=== PATIENT | female | born 1945 | race Caucasian/White ===

== ENCOUNTER → 2018-05-11 | Outpatient (CLI) | payer MEDICARE ==
--- NOTE | 2018-05-11 15:16 | CT ---
EXAMINATION TYPE: CT ChestAbdPelvis w con DATE OF EXAM: 05/11/2018 COMPARISON: Outside CT abdomen 04/18/2018. Bone scan 05/03/2018. HISTORY: 73-year-old female preoperative assessment, history of Breast CA TECHNIQUE: Contiguous axial scanning of the chest, abdomen, and pelvis performed with IV Contrast, pa tient injected with 100 mL of Isovue 300. Delayed images through the kidneys were obtained. Coronal/s agittal reconstructions performed. CT DLP: 1471 mGycm Automated exposure control for dose reduction was used. FINDINGS: Chest: Heart is normal size without pericardial effusion. Aorta is normal caliber with conventional branching anatomy. No thoracic lymphadenopathy by CT size criteria. Fatty breast tissue is present. 1.2 cm left upper lobe pulmonary nodule axial image 18. There is some tree-in-bud nodularity in the a nterior right midlung, axial image 25. Additional small nodules measuring up to 4 mm on the right david e could also be on a postinflammatory basis. No sha consolidation or pleural effusion. ABDOMEN: [id number] size hiatal hernia. No focal liver lesion. Gallbladder, adrenal glands, kidneys, spleen, and pancreas show no gross abnormality. Variant direct takeoff of the splenic artery from the aorta. The graft no dilated small bowel, free f luid, or free air. No mesenteric or retroperitoneal lymphadenopathy. Oral contrast progressed to the descending colon. No pericolonic inflammatory change. Pelvis: Bladder is nondistended. Uterus surgically absent. No abnormal fluid collection in the pelvis or pelv ic lymphadenopathy. Bones: -There is a destructive lesion involving the intertrochanteric region of the left femur with signific ant posterior cortical thinning. -Destructive soft tissue lesion within the right sacrum and posterior right iliac bone. -Permeative lucencies throughout the left scapula and possible incomplete pathologic fracture at the base of the coracoid process. -Suspect a subacute nondisplaced fracture of the right lateral seventh rib, axial image 38. -There may be some marrow replacement of the left clavicular head on axial image 10. -Suspect a lytic lesion within the posterior L2 vertebral body measuring 1 cm, axial image 60. -Destructive soft tissue lesion within the left T4 posterior elements extending across the pedicle an d into the left lateral epidural space, axial image 14. IMPRESSION: 1. OSSEOUS METASTATIC DISEASE WITH PERMEATIVE DESTRUCTION THROUGHOUT THE LEFT SCAPULA. SUSPECT INCOMP LETE PATHOLOGIC FRACTURE AT THE BASE OF THE CORACOID PROCESS. 2. ADDITIONAL LYTIC DISEASE INVOLVING THE LEFT T4 POSTERIOR ELEMENTS WITH EXTENSION ACROSS THE LEFT P EDICLE AND EXTRAOSSEOUS SOFT TISSUE EXTENDING INTO THE LEFT LATERAL EPIDURAL SPACE. 3. MARROW REPLACEMENT IN THE LEFT INTERTROCHANTERIC REGION WITH THINNING OF THE POSTERIOR CORTEX. THI S PLACES THE PATIENT AT RISK FOR PATHOLOGIC FRACTURE. PATIENT SHOULD BE MADE NONWEIGHTBEARING. 4. LYTIC DESTRUCTION OF THE RIGHT SACRUM AND POSTERIOR RIGHT ILIAC BONE. 5. SUSPECT ADDITIONAL OSSEOUS METASTATIC DISEASE IN THE POSTERIOR L2 VERTEBRAL BODY AND LEFT CLAVICUL AR HEAD. 6. A 1.2 CM LEFT UPPER LOBE PULMONARY NODULE SUSPICIOUS FOR METASTATIC DISEASE. 7. TREE-IN-BUD OPACITIES AND SOME SMALLER 4 MM NODULES ON THE RIGHT SUGGEST AN INFECTIOUS/INFLAMMATOR Y ETIOLOGY. REASSESS AT FOLLOW-UP.
== END | disposition home or self-care (01) ==
LOC: RADCTMAIN 12:34
PROVIDERS: ATTEND Internal Medicine Hematology & Oncology
DX: Z01.818 Encounter for other preprocedural examination (principal); R91.8 Other nonspecific abnormal finding of lung field; C79.51 Secondary malignant neoplasm of bone; C50.411 Malignant neoplasm of upper-outer quadrant of right female breast
CPT/HCPCS: 71260; 74177; Q9967

== ENCOUNTER → 2018-05-11 | Outpatient (CLI) | payer MEDICARE ==
--- NOTE | 2018-05-13 10:32 | MR ---
EXAMINATION TYPE: MR brain wo/w con DATE OF EXAM: 05/11/2018 COMPARISON: None HISTORY: Headaches, Hx of Breast CA CONTRAST: Performed utilizing 5.5 mL intravenous Gadavist gadolinium contrast. TECHNIQUE: Multiplanar, multiecho imaging on a 3.0 Amparo magnet is performed through the brain. Stud y is performed within 24 hours of arrival to the hospital. The craniovertebral junction is normal. The pituitary is normal. Diffusion-weighted imaging is performed. No abnormal hyperintensity is present to suggest an acute i ntracranial infarct or acute ischemic change. There are periventricular white matter hyperintensities, likely on the basis of white matter ischemic changes. No suspicious enhancement is evident. Ventricles and sulci are age related prominent. No suspicious enhancement is evident. IMPRESSIONS: 1. Mild age-related atrophy. 2. No suspicious changes to suggest metastatic disease.
== END | disposition home or self-care (01) ==
LOC: RADMRIMAIN 12:10
PROVIDERS: ATTEND Internal Medicine Hematology & Oncology
DX: G31.1 Senile degeneration of brain, not elsewhere classified (principal); C50.919 Malignant neoplasm of unspecified site of unspecified female breast
CPT/HCPCS: 70553; A9581

== ENCOUNTER 2018-05-15 08:23 | Day surgery (SDC) | payer MEDICARE ==
[2018-05-14 14:20] VITALS: BMI 27.2
[~2018-05-15 08:23] MED LIST: ACETAMINOPHEN TAB 500 MG TAB PO ONE; DEXAMETHASONE SOD PHOSPHATE 10 MG/ML 1 ML VIAL IV ONE; LIDOCAINE 1% 20 ML VIAL (10MG/ML) FOR IV START INTRADERMA PRN; MELOXICAM 7.5 MG TAB PO ONE; MIDAZOLAM 2 MG/2 ML VIAL IV PRN; ONDANSETRON 4 MG/2 ML VIAL IVP ONE; TRANEXAMIC ACID 1,000 MG in SODIUM CHLORIDE 0.9% 50 ML IVPB ONE; ceFAZolin IN SWFI 2 GM/20 ML SYRINGE IVP ONE; fentaNYL (PF) 50 MCG/ML 2 ML AMP IV PRN
[2018-05-15] MEDS: LACTATED RINGERS 1,000 ML IV SCH ×2 (09:04→22:19)
[2018-05-15] MEDS ORDERED: HYDROmorphone 0.5 MG/0.5 ML SYRINGE IVP PRN ×3 (09:53)
[2018-05-15] MEDS ORDERED: DIAZEPAM 5 MG TAB PO PRN ×2 (09:53)
[2018-05-15] MEDS ORDERED: ONDANSETRON 4 MG/2 ML VIAL IVP PRN (09:53)
[2018-05-15] MEDS ORDERED: MAGNESIUM HYDROXIDE 2,400 MG/10 ML CUP PO PRN (09:53)
[2018-05-15] MEDS ORDERED: NALOXONE 0.4 MG/ML 1 ML VIAL IV PRN (09:53)
[2018-05-15] MEDS ORDERED: hydrOXYzine PAMOATE 25 MG CAP PO PRN (09:53)
[2018-05-15] MEDS ORDERED: traMADol 50 MG TAB PO PRN (09:57)
[2018-05-15] MEDS ORDERED: ceFAZolin 1,000 MG in SODIUM CHLORIDE 0.9% 1,000 ML IRRIGATION ONE (10:42)
--- NOTE | 2018-05-15 11:37 | P.OP ---
Date of Procedure: 05/15/18 Preoperative Diagnosis: Impending pathologic fracture left hip Postoperative Diagnosis: Impending pathologic fracture left hip Procedure(s) Performed: Prophylactic intramedullary trochanteric nailing, left hip Implants: [employer] intertan nail 125, 10 mm x 32 cm. [employer] Intertan integrated interlocking lag screw, 80 mm lag screw, 75 mm compression screw. [employer] L-P screw, 5.0 mm x 27.5 mm. Anesthesia: GETA Surgeon: Familia Lr Fibrous Plasterer #1: Janell Posadas Estimated Blood Loss (ml): 500 Pathology: other (Reamings sent for pathology) Condition: stable Disposition: PACU Indications for Procedure: This is a 73-year-old female who has suspected metastatic breast carcinoma. Computed tomography scan and bone scan reveal a large lesion in the intertrochanteric region of her left hip. Patient complains of continuing and increasing pain with ambulation of that left hip. After discussing the case with her oncologist as well as the family, I recommended a prophylactic intramedullary rodding of the left hip for impending fracture. The reamings will be sent for pathologic diagnosis at that time. They aware of the complications and potential risks, and informed consent was obtained. Operative Findings: The operative findings are consistent with a pathologic lesion of the left proximal femur. Description of Procedure: The patient was seen in the preoperative area, consent was reviewed, and the operative site was marked with a skin marker. The patient was brought to the operating room and placed on the operating room table. Anesthesia was administered by the anesthesia department. 2 g of Ancef were administered intravenously. The patient was placed supine on the fracture table with the fractured extremity in traction boot. His other extremity was placed in a well leg lizama and his bony prominences were padded. A universal timeout was then performed which confirmed the patient's name, surgical site, ALLERGIES, and consent. The extremity was then prepped and draped in the usual sterile fashion. Utilizing fluoroscopy to identify the tip of the greater trochanter, a 3 cm incision was made just proximal to the greater trochanter. Utilizing a curved awl, the starting hole was created at the tip of the greater trochanter and centralized in the AP plane. These locations were confirmed by fluoroscopy. Guidewire was then inserted down the medullary canal. Sequentially reaming of the femur was performed to 11.5 mm distally and 17 mm proximally. During this time, reamings were collected to be sent for pathologic diagnosis. After reaming, appropriate size nail was inserted over the guidewire. The nail was inserted to the appropriate depth and the guidewire was removed. The lag screw targeting device was placed in the jig and a small skin incision was made and the targeting guide was placed down to bone. Utilizing the distally threaded guidewire, the guidewire was placed in the appropriate position in the femoral head, both anterior, posterior and mediolateral. Next, the drill for the second screw was then placed through the guide and drilled to the appropriate depth. The guidewire was measured and the appropriate depth was then reamed. The final size screw was placed to the appropriate depth. The proximal drill guide was then removed as well as the targeting jig. Then fluoroscopy was used to target freehand the distal locking screw. Distal hole was then drilled and measured to the appropriate depth. Distal screw was then placed. Final fluoroscopic x-rays were obtained. The wounds were then irrigated copiously with saline solution. Fascia was closed with 0-Vicryl. Subcutaneous tissues were closed with 2-0 Vicryl and the skin was closed with yeny. Sterile dressings were applied. The patient was transported to the recovery room in stable condition. The front office assistant FABIANA Curiel was required due the complexity of surgery the need for skilled neurosurgical nurse for positioning draping retraction and fracture reduction.
[2018-05-15] MEDS ORDERED: LACTATED RINGERS 1,000 ML IV ONE (11:39)
[2018-05-15] MEDS ORDERED: HYDROmorphone 1 MG/ML 1 ML SYRINGE IVP ONE (12:15)
--- NOTE | 2018-05-15 12:44 | XR ---
EXAMINATION TYPE: XR Hip Limited LT DATE OF EXAM: 05/15/2018 COMPARISON: NONE HISTORY: Postop TECHNIQUE: One view submitted. FINDINGS: There is postsurgical change in near anatomic alignment. There is soft tissue edema and emphysema. S urgical yeny are noted. IMPRESSION: 1. Postoperative change. Appears in near-anatomic alignment.
--- NOTE | 2018-05-15 12:58 | XR ---
Fluoroscopy History: IM Nail-Left Hip [address]Scott Lr
[2018-05-15] MEDS: traMADol 50 MG TAB PO PRN ×2 (16:43→22:49)
[2018-05-15] MEDS: ceFAZolin IN SWFI 2 GM/20 ML SYRINGE IVP SCH ×2 (16:44→23:32)
--- NOTE | 2018-05-15 16:59 | P.CONS ---
History of Present Illness - Reason for Consult Medical management - Chief Complaint Left hip pain status post intramedullary nail - History of Present Illness This is a very pleasant 73-year-old female who has history of hypertension and breast cancer. Patient has been having some left hip pain for a few weeks with difficulties in ambulation and weightbearing. She underwent evaluation in [place] and due to concern for metastatic disease she was subsequently referred to oncologist in [place] where she was diagnosed with breast cancer. She underwent MRI of the brain CT of the chest abdomen and pelvis and bone scan which all revealed metastatic disease to her T4 left scapula, pelvis, right upper lobe, and left hip. Due to intractable pain and concern about pathological fracture that is basically impeding patient was electively taken today to or and intramedullary nail was placed to stop malaise the left hip. Ex I saw and evaluated the patient postoperatively in the room. Family was present as well. Patient was still tired and little bit groggy from the sedation and pain medications but was able to tell me that her pain is fairly controlled and that she does not have any shortness of breath chest pain nausea vomiting or any abdominal pain This patient denies any cardiac or pulmonary history. She home only takes atenolol and hydrochlorothiazide and Aleve as needed for pain. No history of any narcotic or anxiolytic on for regular use. Review of Systems REVIEW OF SYSTEMS: CONSTITUTIONAL: No fever or chills HEENT: No changes in vision or voice CARDIOVASCULAR: no chest pain or abnormal heart beats, or any swelling in ankles or feet. RESPIRATORY: No wheezing or coughing. GASTROINTESTINAL: No abdominal pain, no nausea no vomiting no constipation or diarrhea GENITOURINARY: no any urinary urgency, frequency or burning, and there has been no blood in her urine. no flank pain. MUSCULOSKELETAL: Left hip and pelvic pain NEUROLOGICAL: , no headache. no vision changes, or fainting. No numbness or tingling. Psychiatric: No depression or anxiety Past Medical History Past Medical History: Cancer, Hypertension Additional Past Medical History / Comment(s): hx of Rt. breast ca, had chemo and radiation 2008, and po meds for 5 yrs. States Small hiatal herna History of Any Multi-Drug Resistant Organisms: None Reported Past Surgical History: Breast Surgery, Hysterectomy Additional Past Surgical History / Comment(s): Timothy mastectomy and reconstruction Past Anesthesia/Blood Transfusion Reactions: No Reported Reaction Smoking Status: Former smoker - Past Family History Mother Family Medical History: Cancer Additional Family Medical History / Comment(s): colon Medications and Allergies Home Medications Medication Instructions Recorded Confirmed Type Aspirin 650 mg PO Q6H PRN 05/14/18 05/15/18 History Atenolol/Chlorthalidone 1 each PO HS 05/14/18 05/15/18 History [Atenolol-Chlorthalidone 50-25] Naproxen Sodium [Aleve] 220 mg PO BID PRN 05/14/18 05/15/18 History Allergies Allergy/AdvReac Type Severity Reaction Status Date / Time hydrocodone [From Vicodin] AdvReac Nausea & Verified 05/15/18 14:42 Vomiting oxycodone AdvReac Nausea & Verified 05/15/18 14:42 Vomiting Physical Exam Vitals: Vital Signs Temp Pulse Resp BP Pulse Ox 05/15/18 14:15 69 97/61 97 05/15/18 14:00 65 95/59 98 05/15/18 13:45 75 113/74 95 05/15/18 13:30 76 107/71 94 L 05/15/18 13:15 70 115/71 96 05/15/18 13:00 97.3 F L 70 112/73 96 05/15/18 12:45 64 16 111/61 96 05/15/18 12:30 66 16 112/56 05/15/18 12:15 65 16 125/66 95 05/15/18 12:00 67 18 118/67 99 05/15/18 11:49 97.0 F L 89 16 121/89 98 05/15/18 08:43 97.9 F 68 16 186/86 95 Intake and Output 05/15/18 05/15/18 05/15/18 06:59 14:59 22:59 Intake Total 1326 Output Total 500 Balance 826 Intake: IV 1326 Sodium Chloride 0.9% 1, 325 000 ml @ 65 mls/hr IV . [id number] [facility] Rx#:[id number] Output: Estimated Blood Loss 500 Other: Weight 61.235 kg General: No distress. Oriented x 3, normal mood and affect . HEENT: Head: Normocephalic, atraumatic, no visible or palpable masses, depressions, or scaring, conjunctiva clear, sclera non-icteric, EOM intact, PERRL Neck: Supple, without lesions, bruits, or adenopathy, thyroid non-enlarged and non-tender no supraclavicular masses Heart: No cardiomegaly or thrills; regular rate and rhythm, no murmur or gallop Lungs: Clear to auscultation and percussion Abdomen: Bowel sounds normal, no tenderness, organomegaly, masses, or hernia Extremities: No amputations or deformities, cyanosis, edema or varicosities, peripheral pulses intact Musculoskeletal: No peripheral joint swelling, pain, erythema. No clubbing Skin: Good turgor, no rash, unusual bruising or prominent lesions Neurologic: CN 2-12 normal. No focal motor deficits, sensitivity to light touch in lower extremities is preserved Psychiatric: Oriented X3, i, normal mood and affect. Results CT scan - abdomen: report reviewed CT scan - chest: report reviewed US - abdomen: report reviewed MRI - head: report reviewed Assessment and Plan Plan: 1. Hip metastatic disease within eating pathological fracture Status post intramedullary nailing Pain control Physical occupational therapy as per orthopedic recommendation PT prophylaxis as per orthopedic recommendation Increase activity as tolerated Incentive spirometry Routine CBC and BMP in the morning 2. Hypertension benign essential Patient is on atenolol and hydrochlorothiazide which can be continued if blood pressure allows I would obtain BMP given that she was a hydrochlorothiazide to evaluate her electrolytes 3. Metastatic breast cancer With bone metastasis Oncology following and further conditions as per their service 4. Acute debility due to surgery Physical occupational therapy and placement and discharge planning as per the recommendation Patient is a nonsmoker and does not have any history of obstructive sleep apnea Patient is a full code Surrogate decision maker is her Tim 2 or more minutes states are anticipated
[2018-05-15] MEDS: SODIUM CHLORIDE 0.9% 1,000 ML IV SCH ×2 (18:45→23:50)
[2018-05-15] MEDS ORDERED: HYDROmorphone 1 MG/ML 1 ML SYRINGE ONE (19:00)
[2018-05-15] MEDS ORDERED: HYDROmorphone 1 MG/ML 1 ML SYRINGE IVP PRN ×3 (19:11→19:13)
[2018-05-15] MEDS: ONDANSETRON 4 MG/2 ML VIAL IVP PRN (21:10)
[2018-05-15] MEDS: SENNOSIDES-DOCUSATE SODIUM 1 EACH TAB PO SCH (21:44)
[2018-05-15] MEDS: ASPIRIN 325 MG TAB PO SCH (21:45)
[2018-05-16] MEDS: ACETAMINOPHEN TAB 325 MG TAB PO PRN ×2 (01:54→07:47)
[2018-05-16 07:32] LABS: Anion Gap 3 mmol/L; Blood Urea Nitrogen 17 mg/dL (7-17); Calcium 8.9 mg/dL (8.4-10.2); Carbon Dioxide 34 mmol/L (22-30); Chloride 100 mmol/L (98-107); Glucose 118 mg/dL (74-99); Potassium 4.1 mmol/L (3.5-5.1); Sodium 137 mmol/L (137-145)
[2018-05-16] MEDS: ONDANSETRON 4 MG/2 ML VIAL IVP PRN (07:46)
[2018-05-16] MEDS: ASPIRIN 325 MG TAB PO SCH ×2 (07:47→21:21)
[2018-05-16 08:11] LABS: Basophils % (A) 0 %; Eosinophils # (A) 0.1 k/uL (0-0.7); Eosinophils % (A) 1 %; HCT 25.7 % (34.0-46.0); HGB 8.5 gm/dL (11.4-16.0); Lymphocytes # (A) 1.9 k/uL (1.0-4.8); Lymphocytes % (A) 26 %; MCHC 33.2 g/dL (31.0-37.0); MCV 87.4 fL (80.0-100.0); Mean Platelet Volume 7.9; Monocytes # (A) 0.3 k/uL (0-1.0); Monocytes % (A) 4 %; Neutrophils # (A) 5.1 k/uL (1.3-7.7); Neutrophils % (A) 69 %; Platelet Count 266 k/uL (150-450); RBC 2.93 m/uL (3.80-5.40); RDW 13.7 % (11.5-15.5); WBC 7.4 k/uL (3.8-10.6)
--- NOTE | 2018-05-16 08:24 | P.PN ---
Subjective Progress Note Date: 05/16/18 This is a 73-year-old female who is status post prophylactic intramedullary trochanteric nailing of the left hip due to impending pathologic fracture of the left hip. The patient has suspected metastatic breast carcinoma. This is postoperative day #1. Patient states that she has walked to the bathroom and back several times. Patient denies any fever/chills, numbness, weakness, tingling, abdominal pain, shortness of breath or chest pain. Objective - Vital Signs Vital signs: Vital Signs Temp 98.1 F 05/16/18 07:56 Pulse 84 05/16/18 07:56 Resp 16 05/16/18 07:56 BP 129/71 05/16/18 07:56 Pulse Ox 99 05/16/18 07:56 Intake & Output 05/15/18 05/16/18 05/16/18 18:59 06:59 18:59 Intake Total 1326 1395 Output Total 500 1 Balance 826 1394 Weight 61.235 kg Intake: IV 1326 1040 Sodium Chloride 0.9% 1, 325 1040 000 ml @ 65 mls/hr IV . [id number] [facility] Rx#:[id number] Oral 355 Output: Emesis 1 Estimated Blood Loss 500 Other: Voiding Method Toilet Bedside Commode # Voids 1 - Exam Vital signs are stable. Patient is in no acute distress and is alert and oriented 3. Calf is soft and nontender to palpation. Dressings are clean, dry , and intact. Patient has full foot and ankle motion without pain or difficulty. Neurovascular status and circulatory status are intact. - Labs CBC & Chem 7: 05/16/18 06:43 05/16/18 06:43 Labs: Abnormal Lab Results - Last 24 Hours (Table) 05/16/18 05/16/18 Range/Units 06:43 06:43 RBC 2.93 L (3.80-5.40) m/uL Hgb 8.5 L (11.4-16.0) gm/dL Hct 25.7 L (34.0-46.0) % Carbon Dioxide 34 H (22-30) mmol/L Glucose 118 H (74-99) mg/dL Assessment and Plan (1) Impending pathological fracture Current Visit: Yes Status: Acute Code(s): M84.40XA - PATHOLOGICAL FRACTURE, UNSP SITE, INIT ENCNTR FOR FRACTURE SNOMED Code(s): 140759789 (2) Status post hip surgery Current Visit: Yes Status: Acute Code(s): Z98.890 - OTHER SPECIFIED POSTPROCEDURAL STATES SNOMED Code(s): 470669689 Plan: Continue routine postop care and pain control. Continue antocoagulation with aspirin. Weightbearing as tolerated with a walker Daily dressing changes. Appreciate input from medicine. Possible discharge home tomorrow.
--- NOTE | 2018-05-16 08:36 | P.DS ---
Providers Expected date of discharge: 05/16/18 Attending physician: Familia Lr Consults: 05/15/18 09:53 Consult Physician Routine Consulting Provider: Kasey Cole Consult Reason/Comments: medical management Do you want consulting provider notified?: Yes Primary care physician: Physician Nonstaff - Discharge Diagnosis(es) (1) Impending pathological fracture Current Visit: Yes Status: Acute (2) Status post hip surgery Current Visit: Yes Status: Acute Hospital Course: This is a 73-year-old female who has suspected metastatic breast carcinoma with impending pathologic fracture of the left hip. The patient presents for evaluation. After discussion and consideration patient elects to proceed with intramedullary trochanteric nailing of the left hip. The patient is seen preoperatively by Dr. Lr. Patient is admitted to [facility] on 05/15/2018 for intramedullary trochanteric nailing of the left hip. The procedures performed without complication or sequelae. The patient is doing well postoperatively. Labs and vital signs are stable on day of discharge. On day of discharge patient's hip incision is healing well. There is minimal erythema. There is no drainage noted at this time. There is minimal soft tissue swelling to the hip and thigh. Patient has full foot and ankle motion without difficulty or pain. Neurovascular status to the left lower extremity is intact. Patient is discharged home in good condition. Please see med rec for accurate list of home medications. Plan - Discharge Summary New Discharge Prescriptions: New Aspirin 325 mg PO BID #60 tab Sennosides [Senokot] 1 tab PO BID #60 tablet traMADol HCl [Ultram] 1 - 2 tab PO Q6H PRN #56 tab PRN Reason: Pain Acetaminophen Tab [Tylenol Tab] 1 - 2 tab PO Q8H PRN #90 tablet PRN Reason: Pain No Action Naproxen Sodium [Aleve] 220 mg PO BID PRN PRN Reason: Pain Aspirin 650 mg PO Q6H PRN PRN Reason: Pain Atenolol/Chlorthalidone [Atenolol-Chlorthalidone 50-25] 1 each PO HS Discharge Medication List Aspirin 650 mg PO Q6H PRN 05/14/18 [History] Atenolol/Chlorthalidone [Atenolol-Chlorthalidone 50-25] 1 each PO HS 05/14/18 [ History] Naproxen Sodium [Aleve] 220 mg PO BID PRN 05/14/18 [History] Acetaminophen Tab [Tylenol Tab] 1 - 2 tab PO Q8H PRN #90 tablet 05/16/18 [Rx] Aspirin 325 mg PO BID #60 tab 05/16/18 [Rx] Sennosides [Senokot] 1 tab PO BID #60 tablet 05/16/18 [Rx] traMADol HCl [Ultram] 1 - 2 tab PO Q6H PRN #56 tab 05/16/18 [Rx] Follow up Appointment(s)/Referral(s): Familia Lr DO [Doctor of Osteopathic Medicine] - 10 Days Activity/Diet/Wound Care/Special Instructions: Weightbearing as tolerated with walker. May shower after 2 days if no drainage from the incision. Alisa to be removed in 10-14 days. Please follow-up with [facility] in 10-14 days. Please call with any questions or concerns, . Discharge Disposition: HOME WITH HOME HEALTH SERVICES
[2018-05-16] MEDS: Acetaminophen-Codeine 300-30mg TAB PO PRN ×3 (13:14→19:28)
[2018-05-16] MEDS: KETOROLAC 30 MG/ML 1 ML VIAL IVP PRN ×2 (14:38→20:40)
[2018-05-16] MEDS: SENNOSIDES-DOCUSATE SODIUM 1 EACH TAB PO SCH (21:21)
[2018-05-17] MEDS: Acetaminophen-Codeine 300-30mg TAB PO PRN ×2 (01:25→07:55)
[2018-05-17] MEDS: KETOROLAC 30 MG/ML 1 ML VIAL IVP PRN ×2 (03:47→10:06)
[2018-05-17] MEDS: SODIUM CHLORIDE 0.9% 1,000 ML IV SCH (06:51)
[2018-05-17] MEDS: LACTATED RINGERS 1,000 ML IV SCH (06:51)
[2018-05-17 07:21] LABS: Basophils % (A) 0 %; Eosinophils # (A) 0.2 k/uL (0-0.7); Eosinophils % (A) 4 %; HGB 8.9 gm/dL (11.4-16.0); Lymphocytes # (A) 1.6 k/uL (1.0-4.8); Lymphocytes % (A) 26 %; MCH 28.1 pg (25.0-35.0); MCHC 32.8 g/dL (31.0-37.0); MCV 85.8 fL (80.0-100.0); Mean Platelet Volume 7.5; Monocytes # (A) 0.4 k/uL (0-1.0); Monocytes % (A) 6 %; Neutrophils # (A) 4.1 k/uL (1.3-7.7); Neutrophils % (A) 63 %; Platelet Count 209 k/uL (150-450); RBC 3.15 m/uL (3.80-5.40); RDW 14.4 % (11.5-15.5); WBC 6.4 k/uL (3.8-10.6)
[2018-05-17] MEDS: ASPIRIN 325 MG TAB PO SCH (07:56)
[2018-05-17] MEDS: ONDANSETRON 4 MG/2 ML VIAL IVP PRN (08:01)
[2018-05-17 08:10] VITALS: BP 161/80; PULSE 84; RESP 17; TEMP 98.4
--- NOTE | 2018-05-17 08:49 | P.PN ---
Subjective Progress Note Date: 05/17/18 Principal diagnosis: Status post IT nail left femur. Pathologic lesion left hip. This is a 73-year-old female who is status post prophylactic nailing of the left femur for a lesion in the proximal femur. She has history of metastatic breast cancer. The patient is feeling better today. Her nausea is improved. Her pain is better controlled. Vital signs are stable. Objective - Vital Signs Vital signs: Vital Signs Temp 98.4 F 05/17/18 08:09 Pulse 84 05/17/18 08:09 Resp 17 05/17/18 08:09 BP 161/80 05/17/18 08:09 Pulse Ox 95 05/17/18 08:09 Intake & Output 05/16/18 05/17/18 05/17/18 18:59 06:59 18:59 Intake Total 1120 Balance 1120 Intake: Intake, IV Titration 200 Amount Sodium Chloride 0.9% 1, 200 000 ml @ 65 mls/hr IV . [id number] [facility] Rx#:[id number] Oral 300 Blood Product 620 Rc As-1 Unit 310 [id number] Other: Voiding Method Toilet Toilet Toilet Bedside Commode # Voids 2 2 - Exam This is a pleasant 73-year-old female in no acute distress. She is alert and oriented 3. Exam of the left hip reveals that her incisions look good. There is no active drainage. There is no erythema. There is minimal ecchymosis. She has full foot and ankle motion without difficulty or pain. Neurovascular status to the lower extremity is intact. - Labs CBC & Chem 7: 05/17/18 06:50 05/16/18 06:43 Labs: Abnormal Lab Results - Last 24 Hours (Table) 05/16/18 05/17/18 Range/Units 17:04 06:50 RBC 3.15 L (3.80-5.40) m/uL Hgb 8.9 L (11.4-16.0) gm/dL Hct 27.0 L (34.0-46.0) % Crossmatch See Detail Assessment and Plan (1) Impending pathological fracture Current Visit: Yes Status: Acute Code(s): M84.40XA - PATHOLOGICAL FRACTURE, UNSP SITE, INIT ENCNTR FOR FRACTURE SNOMED Code(s): 168833793 (2) Status post hip surgery Current Visit: Yes Status: Acute Code(s): Z98.890 - OTHER SPECIFIED POSTPROCEDURAL STATES SNOMED Code(s): 604488680 Plan: The clinical findings are discussed the patient. She is to continue to ambulate using her walker. She may be discharged to home today if cleared medically.
--- NOTE | 2018-05-17 11:51 | P.PN ---
Subjective Feeling well today. He had mild nausea yesterday and didn't feel right to receive blood transfusion and no. Her discontinue that she's feeling much better today. No headache no nausea no vomiting and able to participate in physical therapy. REVIEW OF SYSTEMS: CONSTITUTIONAL: No fever or chills HEENT: No changes in vision or voice CARDIOVASCULAR: no chest pain or abnormal heart beats, or any swelling in ankles or feet. RESPIRATORY: No wheezing or coughing. GASTROINTESTINAL: No abdominal pain, no nausea no vomiting no constipation or diarrhea GENITOURINARY: no any urinary urgency, frequency or burning, and there has been no blood in her urine. no flank pain. MUSCULOSKELETAL: She notes full range of motion of all her joints without pain or swelling. NEUROLOGICAL: , no headache. no vision changes, or fainting. No numbness or tingling. Objective - Vital Signs Vital signs: Vital Signs Temp 98.4 F 05/17/18 08:09 Pulse 84 05/17/18 08:09 Resp 17 05/17/18 08:09 BP 161/80 05/17/18 08:09 Pulse Ox 95 05/17/18 08:09 Intake & Output 05/16/18 05/17/18 05/17/18 18:59 06:59 18:59 Intake Total 1120 340 Balance 1120 340 Intake: Intake, IV Titration 200 Amount Sodium Chloride 0.9% 1, 200 000 ml @ 65 mls/hr IV . [id number] [facility] Rx#:[id number] Oral 300 340 Blood Product 620 Rc As-1 Unit 310 [id number] Other: Voiding Method Toilet Toilet Toilet Bedside Commode # Voids 2 2 1 - Exam Vital Signs: I have reviewed the vital signs. GENERAL: Well-nourished, Well-developed , no apparent distress, cooperative Eyes: PERRL, extraoculry movements intact, clear conjunctiva Head: : Atraumatic external nose and ears, oropharyngeal mucosa is moist without lesions or exudates Neck: Symmetric, trachea midline, No thyromegaly, no masses or neck vain pulsation, no neck rigidity CVS: +S1/S2, No murmurs or gallops. Peripheral pulses 2+ and equal in all extremities. RESP: Unlabored respiratory effort. Clear to auscultation bilaterally. Abdomen: Bowel sounds present in all 4 quadrants, Soft to palpation, Nontender/ Nondistended, No hepatosplenomegaly, no hernias or masses, no CVA tnderness Musculoskeletal: Extremities w/o deformity, No cyanosis or clubbing, no joint swelling Skin: Warm, Dry. 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 Hip metastatic disease within eating pathological fracture Status post intramedullary nailing Pain control Physical occupational therapy as per orthopedic recommendation PT prophylaxis as per orthopedic recommendation Increase activity as tolerated Incentive spirometry 2. Hypertension benign essential Blood pressure has been stable Sodium and calcium normal Discharge home without change in blood pressure medications 3. Metastatic breast cancer With bone metastasis Oncology following and further conditions as per their service 4. Acute debility due to surgery Physical occupational therapy and placement and discharge planning as per the recommendation Stable for discharge home from internal medicine standpoint
== END 2018-05-17 13:39 | disposition home health service (06) ==
LOC: OR 08:23 → 3SUR 11:47 → OR 05-17 13:39
PROVIDERS: ATTEND Orthopaedic Surgery
DX: C79.51 Secondary malignant neoplasm of bone (principal); Z85.3 Personal history of malignant neoplasm of breast; Z92.3 Personal history of irradiation; Z92.21 Personal history of antineoplastic chemotherapy; Z90.13 Acquired absence of bilateral breasts and nipples; Z87.891 Personal history of nicotine dependence; K21.9 Gastro-esophageal reflux disease without esophagitis; I10 Essential (primary) hypertension; H91.90 Unspecified hearing loss, unspecified ear; E78.5 Hyperlipidemia, unspecified; Z79.1 Long term (current) use of non-steroidal anti-inflammatories (NSAID); Z79.899 Other long term (current) drug therapy; Z88.5 Allergy status to narcotic agent
CPT/HCPCS: 97116; 97163; 86900; 86901; 80048; 85025 ×2; 86850; 86920; 88342; 88307; 88311; 88341; 73501; 73502; 27495; C1713; P9016; J2405 ×3; J0690 ×2; J1885 ×2; J1170

== ENCOUNTER 2018-05-25 17:18 | Emergency (ER) | payer MEDICARE ==
[2018-05-25] MEDS ORDERED: ONDANSETRON 4 MG/2 ML VIAL IVP STA (17:42)
[2018-05-25] MEDS ORDERED: SODIUM CHLORIDE 0.9% 1,000 ML IV ONE ×2 (17:44→19:31)
--- NOTE | 2018-05-25 17:45 | ED ---
General Adult HPI - General Chief complaint: Dizziness Stated complaint: Lightheaded/nausea/had surgery last week Time Seen by Provider: 05/25/18 17:29 Source: patient, RN notes reviewed, old records reviewed Mode of arrival: wheelchair Limitations: no limitations - History of Present Illness Initial comments: 73-year-old female presenting for evaluation of dizziness and lightheadedness. Patient has recent diagnosis of metastatic breast cancer. She is approximately 10 days postop left femur sejal for lytic lesion and suspected fracture. Patient states that over the past 12 hours she has had significant lightheadedness and dizziness as well as nausea with dry heaving. Denies any pain complaints. States she has not been eating and drinking well. Denies chest pain. Denies abdominal pain. She has had some constipation she's had several small bowel movements in the past day or 2. No rectal bleeding or melena. She did have a low hemoglobin at the time of discharge. She is currently on aspirin only. No anticoagulation. Denies palpitations. - Related Data Home Medications Medication Instructions Recorded Confirmed Atenolol/Chlorthalidone 1 tab PO HS 05/14/18 05/25/18 [Atenolol-Chlorthalidone 50-25] Naproxen Sodium [Aleve] 220 mg PO BID PRN 05/14/18 05/25/18 Acetaminophen Tab [Tylenol Tab] 500 mg PO Q6HR PRN 05/25/18 05/25/18 Sennosides [Senokot] 8.6 mg PO BID 05/25/18 05/25/18 Previous Rx's Medication Instructions Recorded Aspirin 325 mg PO BID #60 tab 05/16/18 Famotidine [Pepcid] 20 mg PO BID #20 tablet 05/17/18 Ketorolac [Toradol] 10 mg PO Q8HR PRN #12 tab 05/17/18 Ondansetron [Zofran] 4 mg PO Q8HR PRN #20 tab 05/17/18 Allergies Allergy/AdvReac Type Severity Reaction Status Date / Time hydrocodone [From Vicodin] AdvReac Nausea & Verified 05/25/18 17:45 Vomiting oxycodone AdvReac Nausea & Verified 05/25/18 17:45 Vomiting Review of Systems ROS Statement: Those systems with pertinent positive or pertinent negative responses have been documented in the HPI. ROS Other: All systems not noted in ROS Statement are negative. Past Medical History Past Medical History: Cancer, Hypertension Additional Past Medical History / Comment(s): hx of Rt. breast ca, had chemo and radiation 2008, and po meds for 5 yrs. States Small hiatal herna History of Any Multi-Drug Resistant Organisms: None Reported Past Surgical History: Breast Surgery, Hysterectomy Additional Past Surgical History / Comment(s): Timothy mastectomy and reconstruction Past Anesthesia/Blood Transfusion Reactions: No Reported Reaction Past Psychological History: No Psychological Hx Reported Smoking Status: Former smoker Past Alcohol Use History: None Reported Past Drug Use History: None Reported - Past Family History Mother Family Medical History: Cancer Additional Family Medical History / Comment(s): colon General Exam Limitations: no limitations General appearance: alert, in no apparent distress Head exam: Present: atraumatic, normocephalic Eye exam: Present: normal appearance, PERRL, EOMI ENT exam: Present: mucous membranes dry Neck exam: Present: normal inspection. Absent: tenderness, meningismus Respiratory exam: Present: normal lung sounds bilaterally. Absent: respiratory distress, wheezes Cardiovascular Exam: Present: regular rate, normal rhythm GI/Abdominal exam: Present: soft. Absent: distended, tenderness Extremities exam: Present: normal capillary refill. Absent: pedal edema, joint swelling Back exam: Present: normal inspection Neurological exam: Present: alert, oriented X3, CN II-XII intact. Absent: motor sensory deficit Psychiatric exam: Present: normal affect, normal mood Skin exam: Present: warm, dry, intact. Absent: cyanosis, diaphoretic Course Vital Signs 05/25/18 05/25/18 17:26 20:01 Temperature 98.4 F 98.3 F Pulse Rate 89 85 Respiratory 18 18 Rate Blood Pressure 154/83 171/81 O2 Sat by Pulse 98 98 Oximetry - Reevaluation(s) Reevaluation #1: 05/25/18 20:34 On reevaluation, patient is feeling much better. She is eager for discharge. EKG Findings - EKG Comments: EKG Findings:: EKG: Normal sinus rhythm, rate of 78, MS interval 182, QRS duration 80, QTc 471, no ST segment elevation or depression. Medical Decision Making - Medical Decision Making 73-year-old female presenting with lightheadedness, dizziness, and nausea with dry heaving. Patient has stable vital signs. She does appear dehydrated clinically. Patient had recent MRI which was reviewed with no significant abnormality. X-ray of the chest is obtained, negative for airspace disease or acute findings. X-ray of the abdomen is obtained given the patient's history of vomiting and constipation. This is negative for obstruction or intraperitoneal free air. Urinalysis is clear no signs of infection. White blood cell count normal. Hemoglobin is improving. Electrolytes within normal limits. After IV fluids and Toradol for hip pain patient is feeling better. She is offered admission for continued IV hydration and symptomatically treatment. She declines states she would prefer to be discharged home. She will maintain oral hydration at home. Return with worsening or changing symptoms. - Lab Data Result diagrams: 05/25/18 17:45 05/25/18 17:45 Lab Results 05/25/18 05/25/18 05/25/18 Range/Units 17:45 17:45 17:45 WBC 7.8 (3.8-10.6) k/uL RBC 3.58 L (3.80-5.40) m/uL Hgb 10.1 L (11.4-16.0) gm/dL Hct 31.3 L (34.0-46.0) % MCV 87.4 (80.0-100.0) fL MCH 28.2 (25.0-35.0) pg MCHC 32.3 (31.0-37.0) g/dL RDW 14.7 (11.5-15.5) % Plt Count 468 H D (150-450) k/uL Neutrophils % 75 % Lymphocytes % 19 % Monocytes % 5 % Eosinophils % 1 % Basophils % 0 % Neutrophils # 5.8 (1.3-7.7) k/uL Lymphocytes # 1.5 (1.0-4.8) k/uL Monocytes # 0.4 (0-1.0) k/uL Eosinophils # 0.0 (0-0.7) k/uL Basophils # 0.0 (0-0.2) k/uL PT (9.0-12.0) sec INR (<1.2) APTT (22.0-30.0) sec Sodium 139 (137-145) mmol/L Potassium 3.9 (3.5-5.1) mmol/L Chloride 101 (98-107) mmol/L Carbon Dioxide 29 (22-30) mmol/L Anion Gap 9 mmol/L BUN 15 (7-17) mg/dL Creatinine 0.60 (0.52-1.04) mg/dL Est GFR (CKD-EPI)AfAm >90 (>60 ml/min/1.73 sqM) Est GFR (CKD-EPI)NonAf >90 (>60 ml/min/1.73 sqM) Glucose 166 H (74-99) mg/dL Plasma Lactic Acid Jeffrey 1.3 (0.7-2.0) mmol/L Calcium 9.8 (8.4-10.2) mg/dL Total Bilirubin 0.6 (0.2-1.3) mg/dL AST 64 H (14-36) U/L ALT 61 H (9-52) U/L Alkaline Phosphatase 210 H (38-126) U/L Troponin I (0.000-0.034) ng/mL Total Protein 6.4 (6.3-8.2) g/dL Albumin 3.7 (3.5-5.0) g/dL Urine Color Urine Appearance (Clear) Urine pH (5.0-8.0) Ur Specific [place] (1.001-1.035) Urine Protein (Negative) Urine Glucose (UA) (Negative) Urine Ketones (Negative) Urine Blood (Negative) Urine Nitrite (Negative) Urine Bilirubin (Negative) Urine Urobilinogen (<2.0) mg/dL Ur Leukocyte Esterase (Negative) 05/25/18 05/25/18 05/25/18 Range/Units 17:45 17:45 18:50 WBC (3.8-10.6) k/uL RBC (3.80-5.40) m/uL Hgb (11.4-16.0) gm/dL Hct (34.0-46.0) % MCV (80.0-100.0) fL MCH (25.0-35.0) pg MCHC (31.0-37.0) g/dL RDW (11.5-15.5) % Plt Count (150-450) k/uL Neutrophils % % Lymphocytes % % Monocytes % % Eosinophils % % Basophils % % Neutrophils # (1.3-7.7) k/uL Lymphocytes # (1.0-4.8) k/uL Monocytes # (0-1.0) k/uL Eosinophils # (0-0.7) k/uL Basophils # (0-0.2) k/uL PT 9.9 (9.0-12.0) sec INR 1.0 (<1.2) APTT 22.4 (22.0-30.0) sec Sodium (137-145) mmol/L Potassium (3.5-5.1) mmol/L Chloride (98-107) mmol/L Carbon Dioxide (22-30) mmol/L Anion Gap mmol/L BUN (7-17) mg/dL Creatinine (0.52-1.04) mg/dL Est GFR (CKD-EPI)AfAm (>60 ml/min/1.73 sqM) Est GFR (CKD-EPI)NonAf (>60 ml/min/1.73 sqM) Glucose (74-99) mg/dL Plasma Lactic Acid Jeffrey (0.7-2.0) mmol/L Calcium (8.4-10.2) mg/dL Total Bilirubin (0.2-1.3) mg/dL AST (14-36) U/L ALT (9-52) U/L Alkaline Phosphatase (38-126) U/L Troponin I <0.012 (0.000-0.034) ng/mL Total Protein (6.3-8.2) g/dL Albumin (3.5-5.0) g/dL Urine Color Light Yellow Urine Appearance Clear (Clear) Urine pH 7.5 (5.0-8.0) Ur Specific [place] 1.006 (1.001-1.035) Urine Protein Negative (Negative) Urine Glucose (UA) Negative (Negative) Urine Ketones Negative (Negative) Urine Blood Negative (Negative) Urine Nitrite Negative (Negative) Urine Bilirubin Negative (Negative) Urine Urobilinogen <2.0 (<2.0) mg/dL Ur Leukocyte Esterase Negative (Negative) Disposition Clinical Impression: Dehydration Disposition: HOME SELF-CARE Condition: Good Instructions: Dizziness (ED), Dehydration (ED) Additional Instructions: Please return with worsening or changing symptoms. Is patient prescribed a controlled substance at d/c from ED?: No Referrals: Nonstaff,Physician [Primary Care Provider] - 1-2 days Time of Disposition: 20:37
[2018-05-25 18:09] LABS: Basophils % (A) 0 %; Eosinophils % (A) 1 %; HCT 31.3 % (34.0-46.0); HGB 10.1 gm/dL (11.4-16.0); Lymphocytes # (A) 1.5 k/uL (1.0-4.8); Lymphocytes % (A) 19 %; MCH 28.2 pg (25.0-35.0); MCHC 32.3 g/dL (31.0-37.0); MCV 87.4 fL (80.0-100.0); Mean Platelet Volume 7.1; Monocytes # (A) 0.4 k/uL (0-1.0); Monocytes % (A) 5 %; Neutrophils # (A) 5.8 k/uL (1.3-7.7); Neutrophils % (A) 75 %; RBC 3.58 m/uL (3.80-5.40); RDW 14.7 % (11.5-15.5); WBC 7.8 k/uL (3.8-10.6)
[2018-05-25 18:13] LABS: Platelet Count 468 k/uL (150-450)
[2018-05-25 18:19] LABS: ALT 61 U/L (9-52); AST 64 U/L (14-36); Albumin 3.7 g/dL (3.5-5.0); Alkaline Phosphatase 210 U/L (38-126); Anion Gap 9 mmol/L; Blood Urea Nitrogen 15 mg/dL (7-17); Calcium 9.8 mg/dL (8.4-10.2); Carbon Dioxide 29 mmol/L (22-30); Chloride 101 mmol/L (98-107); Glucose 166 mg/dL (74-99); Potassium 3.9 mmol/L (3.5-5.1); Prothrombin Time 9.9 sec (9.0-12.0); Sodium 139 mmol/L (137-145); Total Bilirubin 0.6 mg/dL (0.2-1.3); Total Protein 6.4 g/dL (6.3-8.2)
[2018-05-25 18:26] LABS: Partial Thromboplastin Time 22.4 sec (22.0-30.0)
--- NOTE | 2018-05-25 18:41 | XR ---
EXAMINATION TYPE: XR chest 2V DATE OF EXAM: 05/25/2018 COMPARISON: 04/18/2018 HISTORY: Syncope TECHNIQUE: Frontal and lateral views of the chest are obtained. FINDINGS: Heart and mediastinum are normal. Lungs are clear. Diaphragm is normal. Bony thorax is int act IMPRESSION: Normal chest. No change.
[2018-05-25 18:59] LABS: Appearance,Urine Clear (Clear); Bilirubin,Urine Negative (Negative); Blood,Urine Negative (Negative); Color,Urine Light Yellow; Glucose,Urine (UA) Negative (Negative); Ketones,Urine Negative (Negative); Leukocyte Esterase,Urine Negative (Negative); Nitrite,Urine Negative (Negative); PH, Urine 7.5 (5.0-8.0); Protein,Urine Negative (Negative); Specific Gravity,Urine 1.006 (1.001-1.035); Urobilinogen,Urine <2.0 mg/dL (<2.0)
--- NOTE | 2018-05-25 18:59 | XR ---
EXAMINATION TYPE: XR KUB DATE OF EXAM: 05/25/2018 COMPARISON: NONE HISTORY: Nausea. Pain. TECHNIQUE: 2 supine views. FINDINGS: Bowel gas pattern is normal. There is no sign of intestinal obstruction or pneumoperitoneum . There are no pathologic calcifications over the kidneys. There is left hip nailing. Fecal pattern i s normal. IMPRESSION: Nonacute abdomen.
[2018-05-25] MEDS ORDERED: KETOROLAC 30 MG/ML 1 ML VIAL IVP STA (19:31)
[2018-05-25 20:52] VITALS: BP 189/78; PULSE 83; RESP 16; TEMP 98.7
== END 2018-05-25 21:04 | disposition home or self-care (01) ==
LOC: EC 17:18
DX: E86.0 Dehydration (principal); R11.0 Nausea; R11.2 Nausea with vomiting, unspecified; K59.00 Constipation, unspecified; M25.559 Pain in unspecified hip; D64.9 Anemia, unspecified; I10 Essential (primary) hypertension; Z87.891 Personal history of nicotine dependence; Z79.82 Long term (current) use of aspirin; Z79.899 Other long term (current) drug therapy; Z88.5 Allergy status to narcotic agent; Z85.3 Personal history of malignant neoplasm of breast; Z92.21 Personal history of antineoplastic chemotherapy; Z92.3 Personal history of irradiation; Z90.13 Acquired absence of bilateral breasts and nipples; Z80.0 Family history of malignant neoplasm of digestive organs
CPT/HCPCS: 36415; 93005; 80053; 83605; 84484; 85025; 85610; 85730; 81003; 71046; 74018; 99284; 96374; 96375; 96361 ×3; J2405; J1885